=== PATIENT | male | born 1980 | race African-American/Black ===

== ENCOUNTER 2019-01-09 11:20 | Emergency (ER) | payer BC, OTHER ==
[2019-01-09] MEDS ORDERED: Sodium Chloride 0.9% 10 ML Syringe FLUSH PRN (11:43)
[2019-01-09] MEDS ORDERED: Sodium Chloride 0.9% 1,000 ML IV ONE (11:43)
[2019-01-09] MEDS ORDERED: Sodium Chloride 0.9% 2.5 ML Syringe FLUSH PRN (11:43)
--- NOTE | 2019-01-09 11:48 | EDM.PDOC ---
ED HPI GENERAL MEDICAL PROBLEM - General Chief Complaint: Abdominal Pain Stated Complaint: STOMACH PAIN Time Seen by Provider: 01/09/19 11:48 Source of Information: Reports: Patient History Limitations: Reports: No Limitations - History of Present Illness INITIAL COMMENTS - FREE TEXT/NARRATIVE: HISTORY AND PHYSICAL: History of present illness: Patient is a 38-year-old male presents to the ED with complaint of abdominal pain 1 week. Reports diffuse abdominal pain with nausea, vomiting, and nonbloody diarrhea. He states he last vomited yesterday and today he had a normal solid bowel movement. He denies fevers, chills, dysuria, hematuria, back pain, chest pain, shortness of breath. He does report having a cough. He denies significant past medical or surgical history. Denies tobacco or alcohol use. Review of systems: As per history of present illness and below otherwise all systems reviewed and negative. Past medical history: As per history of present illness and as reviewed below otherwise noncontributory. Surgical history: As per history of present illness and as reviewed below otherwise noncontributory. Social history: No reported history of drug or alcohol abuse. Family history: As per history of present illness and as reviewed below otherwise noncontributory. Physical exam: General: Patient sitting comfortably in no acute distress and nontoxic appearing HEENT: Atraumatic, normocephalic, pupils reactive, negative for conjunctival pallor or scleral icterus, mucous membranes moist, throat clear, neck supple, nontender, trachea midline. No meningeal signs. Lungs: Clear to auscultation, breath sounds equal bilaterally, chest nontender. Heart: S1S2, regular, negative for clicks, rubs, or overt murmur. Abdomen: Diffuse mild abdominal tenderness to palpation Soft, nondistended. Negative for masses or hepatosplenomegaly. Negative for costovertebral tenderness. No rigidity, rebound, guarding. Pelvis: Stable nontender. Genitourinary: Deferred. Rectal: Deferred. Extremities: Atraumatic, negative for cords or calf pain. Neurovascular unremarkable. Neuro: Awake, alert, oriented. Cranial nerves II through XII unremarkable. Cerebellum unremarkable. Motor and sensory unremarkable throughout. Exam nonfocal. Notes: Diagnostics: CBC, CMP, lipase, UA and chest x-ray Therapeutics: 1 L normal saline IV Prescriptions: Impression: Abdominal pain, gastroenteritis Plan: Drink plenty of fluids and bland food as tolerated. Alternate Tylenol and ibuprofen as needed for pain Follow-up with primary care provider Return to ED as needed as discussed Definitive disposition and diagnosis as appropriate pending reevaluation and review of above. Abdominal Pain Score (Numeric/FACES): 10 - Related Data Allergies Allergy/AdvReac Type Severity Reaction Status Date / Time Penicillins Allergy Anaphylactic Verified 01/09/19 11:34 Shock Home Meds: Home Meds . [No Known Home Meds] 01/09/19 [History] Past Medical History - Past Health History Medical/Surgical History: Denies Medical/Surgical History - Infectious Disease History Infectious Disease History: Reports: Chicken Pox Social & Family History - Family History Family Medical History: Noncontributory - Tobacco Use Smoking Status *Q: Never Smoker Second Hand Smoke Exposure: No - Caffeine Use Caffeine Use: Reports: Coffee - Recreational Drug Use Recreational Drug Use: No ED ROS GENERAL - Review of Systems Review Of Systems: ROS reveals no pertinent complaints other than HPI. ED EXAM, GI/ABD - Physical Exam Exam: See Below (See dictation) Course - Vital Signs Last Recorded V/S: Last Vital Signs Temp 97.8 F 01/09/19 11:35 Pulse 73 01/09/19 11:35 Resp 16 01/09/19 11:35 BP 143/100 H 01/09/19 11:35 Pulse Ox 100 01/09/19 11:35 - Orders/Labs/Meds Orders: Active Orders 24 hr Category Date Time Status Sodium Chloride 0.9% [Saline Flush] Med 01/09/19 11:43 Active 10 ml FLUSH ASDIRECTED PRN Sodium Chloride 0.9% [Saline Flush] Med 01/09/19 11:43 Active 2.5 ml FLUSH ASDIRECTED PRN Saline Lock Insert [OM.PC] Stat Oth 01/09/19 11:43 Ordered Medication Orders Sodium Chloride (Saline Flush) 10 ml FLUSH ASDIRECTED PRN PRN Reason: Keep Vein Open Last Admin: 01/09/19 11:55 Dose: 10 ml Sodium Chloride (Saline Flush) 2.5 ml FLUSH ASDIRECTED PRN PRN Reason: Keep Vein Open Last Admin: 01/09/19 11:55 Dose: 2.5 ml Labs: Laboratory Tests 01/09/19 01/09/19 01/09/19 Range/Units 11:38 11:53 11:53 WBC 7.65 (4.0-11.0) K/uL RBC 4.54 (4.50-5.90) M/uL Hgb 13.3 (13.0-17.0) g/dL Hct 41.3 (38.0-50.0) % MCV 91.0 (80.0-98.0) fL MCH 29.3 (27.0-32.0) pg MCHC 32.2 (31.0-37.0) g/dL RDW Std Deviation 40.6 (28.0-62.0) fl RDW Coeff of August 12 (11.0-15.0) % Plt Count 238 (150-400) K/uL MPV 9.60 (7.40-12.00) fL Neut % (Auto) 61.6 (48.0-80.0) % Lymph % (Auto) 29.0 (16.0-40.0) % [place] % (Auto) 7.5 (0.0-15.0) % Eos % (Auto) 1.2 (0.0-7.0) % Baso % (Auto) 0.7 (0.0-1.5) % Neut # (Auto) 4.7 (1.4-5.7) K/uL Lymph # (Auto) 2.2 (0.6-2.4) K/uL [place] # (Auto) 0.6 (0.0-0.8) K/uL Eos # (Auto) 0.1 (0.0-0.7) K/uL Baso # (Auto) 0.1 (0.0-0.1) K/uL Nucleated RBC % 0.0 /100WBC Nucleated RBCs # 0 K/uL Sodium 140 (136-148) mmol/L Potassium 3.6 (3.5-5.1) mmol/L Chloride 104 (98-107) mmol/L Carbon Dioxide 25.7 (21.0-32.0) mmol/L BUN 7 (7.0-18.0) mg/dL Creatinine 1.1 (0.8-1.3) mg/dL Est Cr Clr Drug Dosing 85.96 mL/min Estimated GFR (MDRD) > 60.0 ml/min Glucose 101 (74-106) mg/dL Calcium 9.6 (8.5-10.1) mg/dL Total Bilirubin 0.4 (0.2-1.0) mg/dL AST 20 (15-37) IU/L ALT 19 (14-63) IU/L Alkaline Phosphatase 89 (46-116) U/L Total Protein 7.3 (6.4-8.2) g/dL Albumin 3.6 (3.4-5.0) g/dL Globulin 3.7 (2.6-4.0) g/dL Albumin/Globulin Ratio 1.0 (0.9-1.6) Lipase 135 (73-393) U/L Urine Color YELLOW Urine Appearance CLEAR Urine pH 6.5 (5.0-8.0) Ur Specific [place] 1.010 (1.001-1.035) Urine Protein NEGATIVE (NEGATIVE) mg/dL Urine Glucose (UA) NEGATIVE (NEGATIVE) mg/dL Urine Ketones NEGATIVE (NEGATIVE) mg/dL Urine Occult Blood NEGATIVE (NEGATIVE) Urine Nitrite NEGATIVE (NEGATIVE) Urine Bilirubin NEGATIVE (NEGATIVE) Urine Urobilinogen 0.2 (<2.0) EU/dL Ur Leukocyte Esterase NEGATIVE (NEGATIVE) Meds: Medications Generic Name Dose Route Start Last Admin Trade Name Freq PRN Reason Stop Dose Admin Sodium Chloride 10 ml 01/09/19 11:43 01/09/19 11:55 Saline Flush FLUSH 10 ml ASDIRECTED PRN Administration Keep Vein Open Sodium Chloride 2.5 ml 01/09/19 11:43 01/09/19 11:55 Saline Flush FLUSH 2.5 ml ASDIRECTED PRN Administration Keep Vein Open Discontinued Medications Generic Name Dose Route Start Last Admin Trade Name Freq PRN Reason Stop Dose Admin Sodium Chloride 1,000 mls @ 999 mls/hr 01/09/19 11:43 01/09/19 11:55 Normal Saline IV 01/09/19 12:43 999 mls/hr STAT ONE Administration Departure - Departure Time of Disposition: 12:54 Disposition: Home, Self-Care 01 Condition: Good Clinical Impression: Abdominal pain, Gastroenteritis - Discharge Information Referrals: PCP,Unknown [Primary Care Provider] - Forms: ED Department Discharge Additional Instructions: The following information is given to patients seen in the emergency department who are being discharged to home. This information is to outline your options for follow-up care. We provide all patients seen in our emergency department with a follow-up referral. The need for follow-up, as well as the timing and circumstances, are variable depending upon the specifics of your emergency department visit. If you don't have a primary care physician on staff, we will provide you with a referral. We always advise you to contact your personal physician following an emergency department visit to inform them of the circumstance of the visit and for follow-up with them and/or the need for any referrals to a consulting specialist. The emergency department will also refer you to a specialist when appropriate. This referral assures that you have the opportunity for follow-up care with a specialist. All of these measure are taken in an effort to provide you with optimal care, which includes your follow-up. Under all circumstances we always encourage you to contact your private physician who remains a resource for coordinating your care. When calling for follow-up care, please make the office aware that this follow-up is from your recent emergency room visit. If for any reason you are refused follow-up, please contact the Emergency Department at and asked to speak to the emergency department charge nurse. [facility] [address] [place] [id number] [address] Drink plenty of fluids and bland food as tolerated. Alternate Tylenol and ibuprofen as needed for pain Follow-up with primary care provider Return to ED as needed as discussed - My Orders Last 24 Hours: My Active Orders 01/09/19 11:43 Sodium Chloride 0.9% [Saline Flush] 10 ml FLUSH ASDIRECTED PRN Sodium Chloride 0.9% [Saline Flush] 2.5 ml FLUSH ASDIRECTED PRN Saline Lock Insert [OM.PC] Stat - Assessment/Plan Last 24 Hours: My Active Orders 01/09/19 11:43 Sodium Chloride 0.9% [Saline Flush] 10 ml FLUSH ASDIRECTED PRN Sodium Chloride 0.9% [Saline Flush] 2.5 ml FLUSH ASDIRECTED PRN Saline Lock Insert [OM.PC] Stat
[2019-01-09 12:28] LABS: BLOOD UREA NITROGEN,BUN 7 mg/dL (7.0-18.0); CARBON DIOXIDE,CO2 25.7 mmol/L (21.0-32.0); CHLORIDE,CL 104 mmol/L (98-107); GLUCOSE RANDOM 101 mg/dL (74-106); LIPASE 135 U/L (73-393); POTASSIUM,K 3.6 mmol/L (3.5-5.1); SODIUM,NA 140 mmol/L (136-148)
--- NOTE | 2019-01-09 12:50 | CR ---
Chest: 2 views of the chest were obtained. Comparison: No prior chest x-ray. Heart size and mediastinum are normal. Minimal nodule is noted within the right upper lung measuring about 3 mm. Lungs otherwise are clear. Minimal scoliosis is noted. Impression: 1. 3 mm nodule within the right upper chest. If patient is a smoker, noncontrast chest CT recommended to further evaluate. If patient is not a smoker, this finding can be ignored. 2. Nothing acute is otherwise seen on frontal chest x-ray. Diagnostic code #9 MTDD
== END 2019-01-09 13:07 | disposition home or self-care (01) ==
LOC: MW.ED 11:20
DX: K52.9 Noninfective gastroenteritis and colitis, unspecified (principal); Z88.0 Allergy status to penicillin
CPT/HCPCS: 36415; 71046; 80053; 81003; 83690; 85025; 96360; 99284; J7040; 99283

== ENCOUNTER 2019-01-12 15:08 | Emergency (ER) | payer BC ==
--- NOTE | 2019-01-12 15:19 | EDM.PDOC ---
<Edith Moralez E - Last Filed: 01/12/19 17:39> ED HPI GENERAL MEDICAL PROBLEM - General Chief Complaint: Gastrointestinal Problem Stated Complaint: STOMACH PAIN Time Seen by Provider: 01/12/19 15:13 Source of Information: Reports: Patient History Limitations: Reports: No Limitations - History of Present Illness INITIAL COMMENTS - FREE TEXT/NARRATIVE: HISTORY AND PHYSICAL: History of present illness: Patient is a 38-year-old male who presents to the emergency room with complaints of diffuse mid abdominal pain 1 week. He was seen in the emergency room on 01/09/19 for this same complaint and was told it was likely "viral illness ". He states the pain has not improved and he now has nausea and vomiting associated with this. He states he had a lap band and later removed in 2016 in [place]. States that the pain he experienced during that time is similar to the pain he is having now. Which she describes as "gas pain". He denies any changes in his dietary intake.Patient denies any fever, chills, headache, change in vision, syncope or near syncope. Denies any chest pain, back pain, shortness of breath or cough. Denies any diarrhea, constipation or dysuria. Has not noted any blood in urine or stool. Patient has been eating and drinking appropriately. Review of systems: As per history of present illness and below otherwise all systems reviewed and negative. Past medical history: As per history of present illness and as reviewed below otherwise noncontributory. Surgical history: As per history of present illness and as reviewed below otherwise noncontributory. Social history: See social history for further information Family history: As per history of present illness and as reviewed below otherwise noncontributory. Physical exam: General:Well-developed and well-nourished 38-year-old -[place] male. Alert and oriented. Nontoxic appearing and in no acute distress. HEENT: Atraumatic, normocephalic, pupils equal and reactive bilaterally, negative for conjunctival pallor or scleral icterus, mucous membranes moist, trachea midline. No drooling or trismus noted. No meningeal signs. No hot potato voice noted. Lungs: Clear to auscultation, breath sounds equal bilaterally, chest nontender. Heart: S1S2, regular rate and rhythm without overt murmur Abdomen: Soft, nondistended, diffuse tenderness in all 4 quadrants. Negative for masses or hepatosplenomegaly. Negative for costovertebral tenderness. Skin: Intact, warm, dry. No lesions or rashes noted. Extremities: Atraumatic, moves all extremities per self without difficulty or deficits, negative for cords or calf pain. Neurovascular unremarkable. Neuro: Awake, alert, oriented. Cranial nerves II through XII unremarkable. Cerebellum unremarkable. Motor and sensory unremarkable throughout. Exam nonfocal. Notes: Supportive care measures were reviewed and discussed. Voices understanding and is agreeable to plan of care. Denies any further questions or concerns at this time. Diagnostics: CBC, CMP, UA, lipase, CT abdomen and pelvis Therapeutics: IV fluid Impression: Abdominal pain Definitive disposition and diagnosis as appropriate pending reevaluation and review of above. - Related Data Allergies Allergy/AdvReac Type Severity Reaction Status Date / Time Penicillins Allergy Anaphylactic Verified 01/12/19 15:12 Shock Home Meds: Home Meds Hyoscyamine Sulfate [Levsin] 0.125 mg PO TID PRN #20 tablet 01/12/19 [Rx] Past Medical History - Past Health History Medical/Surgical History: Denies Medical/Surgical History - Infectious Disease History Infectious Disease History: Reports: Chicken Pox Social & Family History - Family History Family Medical History: Noncontributory - Caffeine Use Caffeine Use: Reports: Coffee Course - Vital Signs Last Recorded V/S: Last Vital Signs Temp 97.2 F 01/12/19 17:21 Pulse 82 01/12/19 17:21 Resp 16 01/12/19 17:21 BP 136/91 H 01/12/19 17:21 Pulse Ox 97 01/12/19 17:21 - Orders/Labs/Meds Labs: Laboratory Tests 01/12/19 01/12/19 01/12/19 Range/Units 15:25 15:30 15:30 WBC 10.80 (4.0-11.0) K/uL RBC 4.79 (4.50-5.90) M/uL Hgb 14.1 (13.0-17.0) g/dL Hct 43.7 (38.0-50.0) % MCV 91.2 (80.0-98.0) fL MCH 29.4 (27.0-32.0) pg MCHC 32.3 (31.0-37.0) g/dL RDW Std Deviation 40.9 (28.0-62.0) fl RDW Coeff of August 12 (11.0-15.0) % Plt Count 265 (150-400) K/uL MPV 9.60 (7.40-12.00) fL Neut % (Auto) 74.7 (48.0-80.0) % Lymph % (Auto) 17.9 (16.0-40.0) % [place] % (Auto) 6.6 (0.0-15.0) % Eos % (Auto) 0.4 (0.0-7.0) % Baso % (Auto) 0.4 (0.0-1.5) % Neut # (Auto) 8.1 H (1.4-5.7) K/uL Lymph # (Auto) 1.9 (0.6-2.4) K/uL [place] # (Auto) 0.7 (0.0-0.8) K/uL Eos # (Auto) 0.0 (0.0-0.7) K/uL Baso # (Auto) 0.0 (0.0-0.1) K/uL Nucleated RBC % 0.0 /100WBC Nucleated RBCs # 0 K/uL Sodium 138 (136-148) mmol/L Potassium 3.9 (3.5-5.1) mmol/L Chloride 102 (98-107) mmol/L Carbon Dioxide 27.9 (21.0-32.0) mmol/L BUN 6 L (7.0-18.0) mg/dL Creatinine 1.1 (0.8-1.3) mg/dL Est Cr Clr Drug Dosing 85.96 mL/min Estimated GFR (MDRD) > 60.0 ml/min Glucose 113 H (74-106) mg/dL Calcium 9.8 (8.5-10.1) mg/dL Total Bilirubin 0.5 (0.2-1.0) mg/dL AST 20 (15-37) IU/L ALT 23 (14-63) IU/L Alkaline Phosphatase 99 (46-116) U/L Total Protein 7.8 (6.4-8.2) g/dL Albumin 3.8 (3.4-5.0) g/dL Globulin 4.0 (2.6-4.0) g/dL Albumin/Globulin Ratio 0.9 (0.9-1.6) Lipase 113 (73-393) U/L Urine Color STRAW Urine Appearance CLEAR Urine pH 7.5 (5.0-8.0) Ur Specific [place] 1.010 (1.001-1.035) Urine Protein NEGATIVE (NEGATIVE) mg/dL Urine Glucose (UA) NEGATIVE (NEGATIVE) mg/dL Urine Ketones NEGATIVE (NEGATIVE) mg/dL Urine Occult Blood NEGATIVE (NEGATIVE) Urine Nitrite NEGATIVE (NEGATIVE) Urine Bilirubin NEGATIVE (NEGATIVE) Urine Urobilinogen 0.2 (<2.0) EU/dL Ur Leukocyte Esterase NEGATIVE (NEGATIVE) Meds: Medications Discontinued Medications Generic Name Dose Route Start Last Admin Trade Name Freq PRN Reason Stop Dose Admin Hyoscyamine 0.125 mg 01/12/19 17:17 01/12/19 17:23 Hyomax-Sl SL 01/12/19 17:18 0.125 mg ONETIME ONE Administration Sodium Chloride 1,000 mls @ 999 mls/hr 01/12/19 15:20 01/12/19 15:37 Normal Saline IV 01/12/19 16:20 999 mls/hr STAT ONE Administration Iopamidol 100 ml 01/12/19 17:47 01/12/19 17:48 Isovue-370 (76%) IVPUSH 01/12/19 17:48 100 ml ONETIME STA Administration Ondansetron HCl 4 mg 01/12/19 15:20 01/12/19 15:37 Zofran IVPUSH 01/12/19 15:21 4 mg ONETIME ONE Administration Departure - Departure Disposition: Home, Self-Care 01 Clinical Impression: Abdominal pain Qualifiers: Abdominal location: upper abdomen, unspecified Qualified Code(s): R10.10 - Upper abdominal pain, unspecified - Discharge Information Prescriptions: Hyoscyamine Sulfate [Levsin] 0.125 mg PO TID PRN #20 tablet PRN Reason: Pain Instructions: Abdominal Pain, Adult, [id number] Referrals: PCP,Unknown [Primary Care Provider] - Forms: ED Department Discharge Additional Instructions: The following information is given to patients seen in the emergency department who are being discharged to home. This information is to outline your options for follow-up care. We provide all patients seen in our emergency department with a follow-up referral. The need for follow-up, as well as the timing and circumstances, are variable depending upon the specifics of your emergency department visit. If you don't have a primary care physician on staff, we will provide you with a referral. We always advise you to contact your personal physician following an emergency department visit to inform them of the circumstance of the visit and for follow-up with them and/or the need for any referrals to a consulting specialist. The emergency department will also refer you to a specialist when appropriate. This referral assures that you have the opportunity for follow-up care with a specialist. All of these measure are taken in an effort to provide you with optimal care, which includes your follow-up. Under all circumstances we always encourage you to contact your private physician who remains a resource for coordinating your care. When calling for follow-up care, please make the office aware that this follow-up is from your recent emergency room visit. If for any reason you are refused follow-up, please contact the [facility] Emergency Department at and asked to speak to the emergency department charge nurse. Take meds as directed, follow up with your primary care physician, return to ER if symptoms worsen or change. [facility] - General Surgery Professional Building [address] [place] [address], [address] [place] [address] <Tiffanie Mercado - Last Filed: 01/13/19 05:05> ED HPI GENERAL MEDICAL PROBLEM - History of Present Illness INITIAL COMMENTS - FREE TEXT/NARRATIVE: Patient's workup was negative, I'll discharge him with a prescription for Levsin and have him follow-up with general surgery for further workup. RLQ Pain Score (Numeric/FACES): 10 ED ROS GENERAL - Review of Systems Review Of Systems: See Below ED EXAM, GI/ABD - Physical Exam Exam: See Below Departure - Departure Time of Disposition: 17:04 Condition: Good - Discharge Information *PRESCRIPTION DRUG MONITORING PROGRAM REVIEWED*: No *COPY OF PRESCRIPTION DRUG MONITORING REPORT IN PATIENT ELIUD: No
[2019-01-12] MEDS ORDERED: Ondansetron 4 MG/2 ML SDV IVPUSH ONE (15:20)
[2019-01-12] MEDS ORDERED: Sodium Chloride 0.9% 1,000 ML IV ONE (15:20)
[2019-01-12 15:57] LABS: BLOOD UREA NITROGEN,BUN 6 mg/dL (7.0-18.0); CARBON DIOXIDE,CO2 27.9 mmol/L (21.0-32.0); CHLORIDE,CL 102 mmol/L (98-107); GLUCOSE RANDOM 113 mg/dL (74-106); LIPASE 113 U/L (73-393); POTASSIUM,K 3.9 mmol/L (3.5-5.1); SODIUM,NA 138 mmol/L (136-148)
--- NOTE | 2019-01-12 16:46 | CT ---
Indication: Abdominal pain. Technique: Multiple contiguous axial images were obtained from the lung bases through the symphysis pubis after the intravenous administration of 100 milliliters Isovue 370. Please note that all CT scans at this facility use dose modulation, iterative reconstruction, and/or weight-based dosing when appropriate to reduce radiation dose to as low as reasonably achievable. Comparison: None Findings: The lung bases are clear. No infiltrate, pleural effusion, or pneumothorax is identified. The heart is normal in size. No pericardial effusion is identified. Either the wall is calcified, or there are gallstones with lucent centers within the gallbladder, particularly near the neck of the gallbladder. No intrahepatic biliary ductal dilatation is identified. No hydronephrosis is seen. The liver, spleen, adrenals, and kidneys are normal. In the pelvis, the urinary bladder is normal. The prostate gland is normal. No free air or free fluid is identified within the abdomen or pelvis. The small large bowel are normal in caliber. The aorta is normal in caliber. Questionable thickening of the wall of the distal esophagus is identified. Impression: Questionable thickening of the wall of the distal esophagus. Calcification either within the wall of the neck of the gallbladder or gallstones with lucent centers. If the patient is having right upper quadrant pain, consideration should be given to an ultrasound of the right upper quadrant. Please note that all CT scans at this facility use dose modulation, iterative reconstruction, and/or weight-based dosing when appropriate to reduce radiation dose to as low as reasonably achievable. Dictated by Leslie Estrada MD @ Jan 12 2019 4:40PM Signed by Dr. Leslie Estrada @ Jan 12 2019 4:43PM
[2019-01-12] MEDS ORDERED: Hyoscyamine 0.125 MG Tab.SL SL ONE (17:17)
[2019-01-12] MEDS ORDERED: Iopamidol 755 Mg/ML 100 ML Bottle IVPUSH STA (17:47)
== END 2019-01-12 17:24 | disposition home or self-care (01) ==
LOC: MW.ED 15:08
DX: R10.10 Upper abdominal pain, unspecified (principal); Z88.0 Allergy status to penicillin
CPT/HCPCS: 36415; 74177; 80053; 81003; 83690; 85025; 96361; 96374; 99284; A9270; J2405; J7040; Q9967

== ENCOUNTER 2019-02-05 09:08 | Observation (INO) | payer BC ==
[2019-02-05] MEDS ORDERED: Sodium Chloride 0.9% 1,000 ML IV ONE (09:25)
[2019-02-05] MEDS ORDERED: Sodium Chloride 0.9% 2.5 ML Syringe FLUSH PRN (09:25)
[2019-02-05] MEDS ORDERED: Sodium Chloride 0.9% 10 ML Syringe FLUSH PRN (09:25)
--- NOTE | 2019-02-05 09:25 | EDM.PDOC ---
ED HPI GENERAL MEDICAL PROBLEM - General Chief Complaint: Abdominal Pain Stated Complaint: ABD PAIN Time Seen by Provider: 02/05/19 09:25 Source of Information: Reports: Patient History Limitations: Reports: No Limitations - History of Present Illness INITIAL COMMENTS - FREE TEXT/NARRATIVE: History of present illness: []Patient has abdominal pain that started yesterday but worsened this morning her eating a muffin. He denies any fevers or chills. He has had this pain in the past and is currently being worked up in [place] where he lives. Patient was seen in this ED one month ago with the same pain but had a negative workup at that time. Review of systems: As per history of present illness and below otherwise all systems reviewed and negative. Past medical history: As per history of present illness and as reviewed below otherwise noncontributory. Surgical history: As per history of present illness and as reviewed below otherwise noncontributory. Social history: No reported history of drug or alcohol abuse. Family history: As per history of present illness and as reviewed below otherwise noncontributory. Physical exam: General: Well developed, well nourished in NAD HEENT: Atraumatic, normocephalic, pupils reactive, negative for conjunctival pallor or scleral icterus, mucous membranes moist, throat clear, neck supple, nontender, trachea midline. Lungs: Clear to auscultation, breath sounds equal bilaterally, chest nontender. Heart: S1S2, regular, negative for clicks, rubs, or JVD. Abdomen: NABS, Soft, nondistended, nontender. Negative for masses or hepatosplenomegaly. Negative for costovertebral tenderness. Pelvis: Stable nontender. Genitourinary: Deferred. Rectal: Deferred. Extremities: Atraumatic, negative for cords or calf pain. Neurovascular unremarkable. Neuro: Awake, alert, oriented. Cranial nerves II through XII unremarkable. Cerebellum unremarkable. Motor and sensory unremarkable throughout. Exam nonfocal. Skin:warm and dry Diagnostics: CBC, chemistry, lipase, abdominal ultrasound-[facility] radiologist called and stated he is concerned about acute cholecystitis is of them positive Freitas sign and and that there are so many stones he is unable to tell if there is wall thickening or not. Therapeutics: IV hydration with Zofran ED Course: Stable home and consulted Dr. Good and he will admit for further work up Impression: Acute cholecystitis Prescriptions: None Plan: Admit to floor Definitive disposition and diagnosis as appropriate pending reevaluation and review of above. Abdominal Pain Score (Numeric/FACES): 10 - Related Data Allergies Allergy/AdvReac Type Severity Reaction Status Date / Time Penicillins Allergy Anaphylactic Verified 02/05/19 13:00 Shock Home Meds: Home Meds Hyoscyamine Sulfate [Levsin] 0.125 mg PO TID PRN #20 tablet 01/12/19 [Rx] Past Medical History - Past Health History Medical/Surgical History: Denies Medical/Surgical History - Infectious Disease History Infectious Disease History: Reports: Chicken Pox Social & Family History - Family History Family Medical History: Noncontributory - Caffeine Use Caffeine Use: Reports: Coffee ED ROS GENERAL - Review of Systems Review Of Systems: See Below ED EXAM, GI/ABD - Physical Exam Exam: See Below Course - Vital Signs Last Recorded V/S: Last Vital Signs Temp 98.3 F 02/05/19 09:23 Pulse 67 02/05/19 09:23 Resp 16 02/05/19 09:23 BP 147/91 H 02/05/19 09:23 Pulse Ox 100 02/05/19 09:23 - Orders/Labs/Meds Orders: Active Orders 24 hr Category Date Time Status Patient Status [ADT] Stat ADT 02/05/19 11:57 Active Sodium Chloride 0.9% [Saline Flush] Med 02/05/19 09:25 Active 10 ml FLUSH ASDIRECTED PRN Sodium Chloride 0.9% [Saline Flush] Med 02/05/19 09:25 Active 2.5 ml FLUSH ASDIRECTED PRN Saline Lock Insert [OM.PC] Stat Oth 02/05/19 09:25 Ordered Medication Orders Lactated Ringer's (Ringers, Lactated) 1,000 mls @ 125 mls/hr IV ASDIRECTED FREDIS Last Admin: 02/05/19 13:11 Dose: 125 mls/hr Pantoprazole Sodium 40 mg/ (Sodium Chloride) 10 mls @ 300 mls/hr IV DAILY FREDIS Levofloxacin/Dextrose 750 mg/ (Premix) 150 mls @ 100 mls/hr IV Q24H FREDIS Morphine Sulfate (Morphine) 3 mg IVPUSH Q4H PRN PRN Reason: Pain Sodium Chloride (Saline Flush) 10 ml FLUSH ASDIRECTED PRN PRN Reason: Keep Vein Open Sodium Chloride (Saline Flush) 2.5 ml FLUSH ASDIRECTED PRN PRN Reason: Keep Vein Open Labs: Laboratory Tests 02/05/19 02/05/19 02/05/19 Range/Units 09:44 09:44 09:50 WBC 16.92 H (4.0-11.0) K/uL RBC 4.69 (4.50-5.90) M/uL Hgb 13.7 (13.0-17.0) g/dL Hct 42.9 (38.0-50.0) % MCV 91.5 (80.0-98.0) fL MCH 29.2 (27.0-32.0) pg MCHC 31.9 (31.0-37.0) g/dL RDW Std Deviation 41.1 (28.0-62.0) fl RDW Coeff of August 12 (11.0-15.0) % Plt Count 291 (150-400) K/uL MPV 9.60 (7.40-12.00) fL Neut % (Auto) 88.2 H (48.0-80.0) % Lymph % (Auto) 6.1 L (16.0-40.0) % [place] % (Auto) 5.6 (0.0-15.0) % Eos % (Auto) 0.0 (0.0-7.0) % Baso % (Auto) 0.1 (0.0-1.5) % Neut # (Auto) 14.9 H (1.4-5.7) K/uL Lymph # (Auto) 1.0 (0.6-2.4) K/uL [place] # (Auto) 1.0 H (0.0-0.8) K/uL Eos # (Auto) 0.0 (0.0-0.7) K/uL Baso # (Auto) 0.0 (0.0-0.1) K/uL Nucleated RBC % 0.0 /100WBC Nucleated RBCs # 0 K/uL Sodium 138 (136-148) mmol/L Potassium 3.7 (3.5-5.1) mmol/L Chloride 101 (98-107) mmol/L Carbon Dioxide 26.8 (21.0-32.0) mmol/L BUN 6 L (7.0-18.0) mg/dL Creatinine 1.1 (0.8-1.3) mg/dL Est Cr Clr Drug Dosing 91.95 mL/min Estimated GFR (MDRD) > 60.0 ml/min Glucose 123 H (74-106) mg/dL Calcium 9.6 (8.5-10.1) mg/dL Total Bilirubin 0.6 (0.2-1.0) mg/dL AST 22 (15-37) IU/L ALT 20 (14-63) IU/L Alkaline Phosphatase 98 (46-116) U/L Total Protein 9.1 H (6.4-8.2) g/dL Albumin 4.0 (3.4-5.0) g/dL Globulin 5.1 H (2.6-4.0) g/dL Albumin/Globulin Ratio 0.8 L (0.9-1.6) Lipase 89 (73-393) U/L Urine Color YELLOW Urine Appearance CLEAR Urine pH 7.0 (5.0-8.0) Ur Specific [place] 1.020 (1.001-1.035) Urine Protein TRACE H (NEGATIVE) mg/dL Urine Glucose (UA) NEGATIVE (NEGATIVE) mg/dL Urine Ketones NEGATIVE (NEGATIVE) mg/dL Urine Occult Blood TRACE-INTACT H (NEGATIVE) Urine Nitrite NEGATIVE (NEGATIVE) Urine Bilirubin NEGATIVE (NEGATIVE) Urine Urobilinogen 1.0 (<2.0) EU/dL Ur Leukocyte Esterase NEGATIVE (NEGATIVE) Urine RBC 0-3 (0-2/HPF) Urine WBC 0-1 (0-5/HPF) Ur Epithelial Cells RARE (NONE-FEW) Urine Bacteria RARE (NEGATIVE) Meds: Medications Generic Name Dose Route Start Last Admin Trade Name Freq PRN Reason Stop Dose Admin Lactated Ringer's 1,000 mls @ 125 mls/hr 02/05/19 12:30 02/05/19 13:11 Ringers, Lactated IV 125 mls/hr ASDIRECTED FREDIS Administration Pantoprazole Sodium 40 mg/ 10 mls @ 300 mls/hr 02/06/19 09:00 Sodium Chloride IV DAILY FREDIS Levofloxacin/Dextrose 750 mg/ 150 mls @ 100 mls/hr 02/06/19 12:30 Premix IV Q24H FREDIS Morphine Sulfate 3 mg 02/05/19 12:22 Morphine IVPUSH Q4H PRN Pain Sodium Chloride 10 ml 02/05/19 09:25 Saline Flush FLUSH ASDIRECTED PRN Keep Vein Open Sodium Chloride 2.5 ml 02/05/19 09:25 Saline Flush FLUSH ASDIRECTED PRN Keep Vein Open Discontinued Medications Generic Name Dose Route Start Last Admin Trade Name Freq PRN Reason Stop Dose Admin Sodium Chloride 1,000 mls @ 999 mls/hr 02/05/19 09:25 02/05/19 09:48 Normal Saline IV 02/05/19 10:25 999 mls/hr .Bolus ONE Administration Levofloxacin/Dextrose 500 mg/ 100 mls @ 100 mls/hr 02/05/19 11:10 02/05/19 11 :37 Premix IV 02/05/19 12:09 100 mls/hr ONETIME ONE Administration Levofloxacin/Dextrose 750 mg/ 150 mls @ 100 mls/hr 02/05/19 12:30 Premix IV Q24H FREDIS Iopamidol 100 ml 02/05/19 12:29 02/05/19 12:38 Isovue Multipack-370 (76%) IVPUSH 02/05/19 12:30 100 ml ONETIME STA Administration Ketorolac Tromethamine 30 mg 02/05/19 09:34 02/05/19 09:46 Toradol IVPUSH 02/05/19 09:35 30 mg ONETIME ONE Administration Morphine Sulfate 4 mg 02/05/19 11:40 02/05/19 11:45 Morphine IVPUSH 02/05/19 11:41 4 mg ONETIME ONE Administration Ondansetron HCl 4 mg 02/05/19 09:34 02/05/19 09:46 Zofran IVPUSH 02/05/19 09:35 4 mg ONETIME ONE Administration Departure - Departure Time of Disposition: 13:33 Disposition: Home, Self-Care 01 Condition: Good Clinical Impression: Acute abdominal pain - Discharge Information *PRESCRIPTION DRUG MONITORING PROGRAM REVIEWED*: No *COPY OF PRESCRIPTION DRUG MONITORING REPORT IN PATIENT EILUD: No - My Orders Last 24 Hours: My Active Orders 02/05/19 09:25 Sodium Chloride 0.9% [Saline Flush] 10 ml FLUSH ASDIRECTED PRN Sodium Chloride 0.9% [Saline Flush] 2.5 ml FLUSH ASDIRECTED PRN Saline Lock Insert [OM.PC] Stat 02/05/19 11:57 Patient Status [ADT] Stat - Assessment/Plan Last 24 Hours: My Active Orders 02/05/19 09:25 Sodium Chloride 0.9% [Saline Flush] 10 ml FLUSH ASDIRECTED PRN Sodium Chloride 0.9% [Saline Flush] 2.5 ml FLUSH ASDIRECTED PRN Saline Lock Insert [OM.PC] Stat 02/05/19 11:57 Patient Status [ADT] Stat
[2019-02-05] MEDS ORDERED: Ketorolac 30 MG/ML SDV IVPUSH ONE (09:34)
[2019-02-05] MEDS ORDERED: Ondansetron 4 MG/2 ML SDV IVPUSH ONE (09:34)
[2019-02-05 10:36] LABS: BLOOD UREA NITROGEN,BUN 6 mg/dL (7.0-18.0); CARBON DIOXIDE,CO2 26.8 mmol/L (21.0-32.0); CHLORIDE,CL 101 mmol/L (98-107); GLUCOSE RANDOM 123 mg/dL (74-106); LIPASE 89 U/L (73-393); POTASSIUM,K 3.7 mmol/L (3.5-5.1); SODIUM,NA 138 mmol/L (136-148)
[2019-02-05] MEDS ORDERED: Levofloxacin/Dextrose 5%-Water 500 MG in Premix Bag 1 BAG IV ONE (11:10)
--- NOTE | 2019-02-05 11:10 | US ---
INDICATION: Right-sided pain. COMPARISON: CT abdomen/pelvis 01/12/2019. TECHNIQUE: Real time anne scale imaging and color Doppler analysis was performed of the right upper quadrant. FINDINGS: Liver: The liver is normal in size and echogenicity. No focal liver lesions. Gallbladder: Multiple echogenic shadowing stones within the gallbladder. The gallbladder wall measures 3 mm in thickness where seen, however overall poorly visualized due to extensive shadowing. No definite pericholecystic fluid. Positive sonographic Freitas`s sign. Bile ducts: No biliary dilation. The common bile duct measures 4 mm in diameter. Pancreas: Not well seen due to bowel gas. Right kidney: The right kidney measures 10 cm in length. No hydronephrosis, calculus, or mass. IMPRESSION: 1. Possible acute cholecystitis. The gallbladder is full of shadowing stones and there is a positive sonographic Freitas sign, however no definite wall thickening or pericholecystic fluid. Findings discussed with Tiffanie Mercado at 11:01am on 02/05/2019. 2. Exam is otherwise unremarkable. Dictated by Luda Luis MD @ Feb 05 2019 10:42AM (Electronically Signed)
[2019-02-05] MEDS ORDERED: Morphine 4 MG/ML Syringe IVPUSH ONE (11:40)
[2019-02-05] MEDS ORDERED: Iopamidol 755 MG/ML 500 ML Multipack Bottle IVPUSH STA (12:29)
[2019-02-05] MEDS ORDERED: Levofloxacin/Dextrose 5%-Water 750 MG in Premix Bag 1 BAG IV SCH (12:30)
--- NOTE | 2019-02-05 12:50 | PCM.SN ---
- Free Text/Narrative Note: pt seen, chart reviewed; symptomatic gallstones; admitted for observation, and abx administration, npo, pain management; poss gb surgery in a week; [id number]
[2019-02-05] MEDS: Lactated Ringers 1,000 ML IV SCH ×2 (13:11→20:51)
--- NOTE | 2019-02-05 13:11 | CT ---
CT abdomen and pelvis Technique: Multiple axial sections were obtained from above the dome of the diaphragm inferiorly through the pubic symphysis. Intravenous contrast was utilized. No oral contrast has been given. Findings: Visualized lung bases show nothing acute. Small low density finding is noted within the posterior right lobe of the liver. This does not appear as a cystic area and measures 1.1 cm. No additional abnormality is seen within the liver. Spleen appears within normal limits. Small hiatal hernia is noted. Adrenal glands show no nodule. Pancreas is within normal limits. Gallbladder contains calcified gallstones. No gallbladder wall edema is identified on the study. Aorta shows no aneurysm. No retroperitoneal adenopathy is seen. Kidneys show symmetric contrast enhancement without hydronephrosis or mass. No retroperitoneal adenopathy or mesenteric abnormalities are seen. Appendix not visualized with certainty. No pelvic mass or adenopathy is seen. No free fluid or inflammatory change is seen. Bone window settings were reviewed which appear within normal limits for the patient's age. Impression: 1. Small solid mass within the right lobe of the liver. Recommend ultrasound exam to see if this can be seen by that modality and to allow for follow-up. 2. Multiple calcified gallstones. 3. No additional abnormality is appreciated on CT study of the abdomen and pelvis. Diagnostic code #9 MTDD
[2019-02-05] MEDS ORDERED: Pneumococcal Polyvalent-23 Vaccine 0.5 ML SDV IM ONE (13:31)
[2019-02-05] MEDS: Morphine 2 MG/ML Syringe IVPUSH PRN ×2 (16:07→20:26)
--- NOTE | 2019-02-06 00:49 | PCM.SN ---
- Free Text/Narrative Note: ct a/p readings noted; no acute process. gb w stones, continue iv abx/npo/pain management
[2019-02-06] MEDS: Morphine 2 MG/ML Syringe IVPUSH PRN ×2 (00:57→05:05)
[2019-02-06] MEDS: Lactated Ringers 1,000 ML IV SCH (04:53)
[2019-02-06 06:55] LABS: BLOOD UREA NITROGEN,BUN 8 mg/dL (7.0-18.0); CARBON DIOXIDE,CO2 28.4 mmol/L (21.0-32.0); CHLORIDE,CL 104 mmol/L (98-107); GLUCOSE RANDOM 98 mg/dL (74-106); LIPASE 82 U/L (73-393); POTASSIUM,K 3.8 mmol/L (3.5-5.1); SODIUM,NA 141 mmol/L (136-148)
--- NOTE | 2019-02-06 08:22 | CONS ---
H&P AND CONSULTATION REPORT DATE OF CONSULTATION: 02/05/2019 DATE OF : 1980 PRIMARY CARE PHYSICIAN: Franky I. PCP REASON FOR CONSULTATION: This is a consult from Dr. Mercado in the emergency room. Concerning question is acute cholecystitis. HISTORY OF PRESENT ILLNESS: The patient is a 38-year-old gentleman, obese, seen in the emergency room for pain, 10/10, for the last 2 weeks. The patient said the pain is most common at about 1900 evening up to 2000, but has been going on for months or even years. This time has been happening for 2 weeks. The patient was seen here a month ago, and workup shows gallstones. The patient wanted to tough it out, so he can have surgery in [place], where his hometown is. However, the pain getting worse today and seen in the emergency room. The patient denied jaundice, dark urine, and white stool. Denied weight loss without intention and denied bright red blood per rectum, denied black tarry stool. The patient also remarked that he had presumably an EGD done 6 months ago and was then prescribed some medication, but he does not know what medication, presumably was a PPI. PAST MEDICAL HISTORY: Denied diabetes, HI, CVA, hypertension. PAST SURGICAL HISTORY: Had lap banding done 6 years ago and was removed 2 years ago and endoscopy done. ALLERGIES: Please refer to nursing for details. MEDICATIONS: Please refer to nursing for details. SOCIAL HISTORY: The patient denied tobacco or alcohol use. FAMILY HISTORY: Noncontributory. PHYSICAL EXAMINATION: GENERAL: An overly anxious young man with tearful spell in the emergency room because of pain. HEENT: Normocephalic and atraumatic. Sclerae are anicteric. LUNGS: Clear to auscultation. HEART: Regular rate and rhythm. ABDOMEN: Painful from the epigastrium down to inguinal area. Asked the patient several times, the patient remarked as 10/10 and with tears in his eyes and running down on his cheeks. LABORATORY DATA: Upon consultation, white count 16.9, H and H are 14 and 43, platelets are 291,000. Sodium 138, potassium 3.7, BUN is 6, creatinine is 1.1, glucose 123. Total bilirubin is 0.6, AST and ALT of 22 and 20, alkaline phosphatase is 98. Lipase is 89. UA is negative for infection. Ultrasound report: Possible acute cholecystitis. Gallbladder is full of shadowing stones. Positive Freitas's sign. No wall thickening and no intraductal dilatation. Common bile duct is 4 mm. No pericholecystic fluid. IMPRESSION/PLAN: Abdominal pain, almost exaggerated in presentation. We will obtain CAT scan of abdomen and pelvis. Of note, the patient denied black tarry stool or bright red blood per rectum and had well-formed stool the morning when coming to the emergency room and his regular color. The patient denied nausea. After CAT scan, the patient will be able to admit for observation, pain management, antibiotic. Cool down the gallbladder and maybe consider gallbladder surgery a week from now or preferably, as the patient put it, to have surgery in his hometown in [place]. CARIDAD / PRECIOUS /[id number]
[2019-02-06] MEDS ORDERED: Pantoprazole 40 MG in Sodium Chloride 0.9% 10 ML IV SCH (09:00)
[2019-02-06] MEDS ORDERED: Docusate Sodium 100 MG Cap PO PRN (09:27)
--- NOTE | 2019-02-06 09:30 | PCM.SURGPN ---
- General Info Date of Service: 02/06/19 Functional Status: Reports: Pain Controlled - Patient Data Vitals - Most Recent: Last Vital Signs Temp 97.4 F 02/06/19 07:56 Pulse 74 02/06/19 07:56 Resp 16 02/06/19 07:56 BP 120/73 02/06/19 07:56 Pulse Ox 97 02/06/19 07:56 Weight - Most Recent: 233 lb 1 oz I&O - Last 24 Hours: Intake & Output 02/05/19 02/06/19 02/06/19 22:59 06:59 14:59 Intake Total 1316 980 Output Total 120 770 Balance 1196 210 Lab Results Last 24 Hrs: Laboratory Results - last 24 hr 02/05/19 02/05/19 02/05/19 Range/Units 09:44 09:44 09:50 WBC 16.92 H (4.0-11.0) K/uL RBC 4.69 (4.50-5.90) M/uL Hgb 13.7 (13.0-17.0) g/dL Hct 42.9 (38.0-50.0) % MCV 91.5 (80.0-98.0) fL MCH 29.2 (27.0-32.0) pg MCHC 31.9 (31.0-37.0) g/dL RDW Std Deviation 41.1 (28.0-62.0) fl RDW Coeff of August 12 (11.0-15.0) % Plt Count 291 (150-400) K/uL MPV 9.60 (7.40-12.00) fL Neut % (Auto) 88.2 H (48.0-80.0) % Lymph % (Auto) 6.1 L (16.0-40.0) % [place] % (Auto) 5.6 (0.0-15.0) % Eos % (Auto) 0.0 (0.0-7.0) % Baso % (Auto) 0.1 (0.0-1.5) % Neut # (Auto) 14.9 H (1.4-5.7) K/uL Lymph # (Auto) 1.0 (0.6-2.4) K/uL [place] # (Auto) 1.0 H (0.0-0.8) K/uL Eos # (Auto) 0.0 (0.0-0.7) K/uL Baso # (Auto) 0.0 (0.0-0.1) K/uL Nucleated RBC % 0.0 /100WBC Nucleated RBCs # 0 K/uL Sodium 138 (136-148) mmol/L Potassium 3.7 (3.5-5.1) mmol/L Chloride 101 (98-107) mmol/L Carbon Dioxide 26.8 (21.0-32.0) mmol/L BUN 6 L (7.0-18.0) mg/dL Creatinine 1.1 (0.8-1.3) mg/dL Est Cr Clr Drug Dosing 91.95 mL/min Estimated GFR (MDRD) > 60.0 ml/min Glucose 123 H (74-106) mg/dL Calcium 9.6 (8.5-10.1) mg/dL Total Bilirubin 0.6 (0.2-1.0) mg/dL AST 22 (15-37) IU/L ALT 20 (14-63) IU/L Alkaline Phosphatase 98 (46-116) U/L Total Protein 9.1 H (6.4-8.2) g/dL Albumin 4.0 (3.4-5.0) g/dL Globulin 5.1 H (2.6-4.0) g/dL Albumin/Globulin Ratio 0.8 L (0.9-1.6) Amylase (25-115) U/L Lipase 89 (73-393) U/L Urine Color YELLOW Urine Appearance CLEAR Urine pH 7.0 (5.0-8.0) Ur Specific [place] 1.020 (1.001-1.035) Urine Protein TRACE H (NEGATIVE) mg/dL Urine Glucose (UA) NEGATIVE (NEGATIVE) mg/dL Urine Ketones NEGATIVE (NEGATIVE) mg/dL Urine Occult Blood TRACE-INTACT H (NEGATIVE) Urine Nitrite NEGATIVE (NEGATIVE) Urine Bilirubin NEGATIVE (NEGATIVE) Urine Urobilinogen 1.0 (<2.0) EU/dL Ur Leukocyte Esterase NEGATIVE (NEGATIVE) Urine RBC 0-3 (0-2/HPF) Urine WBC 0-1 (0-5/HPF) Ur Epithelial Cells RARE (NONE-FEW) Urine Bacteria RARE (NEGATIVE) 02/06/19 02/06/19 Range/Units 06:23 06:23 WBC 10.20 (4.0-11.0) K/uL RBC 4.16 L (4.50-5.90) M/uL Hgb 12.1 L (13.0-17.0) g/dL Hct 38.5 (38.0-50.0) % MCV 92.5 (80.0-98.0) fL MCH 29.1 (27.0-32.0) pg MCHC 31.4 (31.0-37.0) g/dL RDW Std Deviation 41.7 (28.0-62.0) fl RDW Coeff of August 12 (11.0-15.0) % Plt Count 232 (150-400) K/uL MPV 9.60 (7.40-12.00) fL Neut % (Auto) 72.3 (48.0-80.0) % Lymph % (Auto) 18.2 (16.0-40.0) % [place] % (Auto) 9.1 (0.0-15.0) % Eos % (Auto) 0.2 (0.0-7.0) % Baso % (Auto) 0.2 (0.0-1.5) % Neut # (Auto) 7.4 H (1.4-5.7) K/uL Lymph # (Auto) 1.9 (0.6-2.4) K/uL [place] # (Auto) 0.9 H (0.0-0.8) K/uL Eos # (Auto) 0.0 (0.0-0.7) K/uL Baso # (Auto) 0.0 (0.0-0.1) K/uL Nucleated RBC % 0.0 /100WBC Nucleated RBCs # 0 K/uL Sodium 141 (136-148) mmol/L Potassium 3.8 (3.5-5.1) mmol/L Chloride 104 (98-107) mmol/L Carbon Dioxide 28.4 (21.0-32.0) mmol/L BUN 8 (7.0-18.0) mg/dL Creatinine 1.1 (0.8-1.3) mg/dL Est Cr Clr Drug Dosing 85.96 mL/min Estimated GFR (MDRD) > 60.0 ml/min Glucose 98 (74-106) mg/dL Calcium 9.0 (8.5-10.1) mg/dL Total Bilirubin 0.7 (0.2-1.0) mg/dL AST 13 L (15-37) IU/L ALT 15 (14-63) IU/L Alkaline Phosphatase 73 (46-116) U/L Total Protein 6.4 (6.4-8.2) g/dL Albumin 2.9 L (3.4-5.0) g/dL Globulin 3.5 (2.6-4.0) g/dL Albumin/Globulin Ratio 0.8 L (0.9-1.6) Amylase 39 (25-115) U/L Lipase 82 (73-393) U/L Urine Color Urine Appearance Urine pH (5.0-8.0) Ur Specific [place] (1.001-1.035) Urine Protein (NEGATIVE) mg/dL Urine Glucose (UA) (NEGATIVE) mg/dL Urine Ketones (NEGATIVE) mg/dL Urine Occult Blood (NEGATIVE) Urine Nitrite (NEGATIVE) Urine Bilirubin (NEGATIVE) Urine Urobilinogen (<2.0) EU/dL Ur Leukocyte Esterase (NEGATIVE) Urine RBC (0-2/HPF) Urine WBC (0-5/HPF) Ur Epithelial Cells (NONE-FEW) Urine Bacteria (NEGATIVE) Med Orders - Current: Current Medications Docusate Sodium (Colace) 100 mg PO DAILY PRN PRN Reason: Constipation Lactated Ringer's (Ringers, Lactated) 1,000 mls @ 125 mls/hr IV ASDIRECTED [facility] Last Admin: 02/06/19 04:53 Dose: 125 mls/hr Pantoprazole Sodium 40 mg/ (Sodium Chloride) 10 mls @ 300 mls/hr IV DAILY [facility] Last Admin: 02/06/19 09:16 Dose: 300 mls/hr Levofloxacin/Dextrose 750 mg/ (Premix) 150 mls @ 100 mls/hr IV Q24H [facility] Oxycodone/Acetaminophen (Percocet 325-5 Mg) 1 tab PO Q4H PRN PRN Reason: Pain Sodium Chloride (Saline Flush) 10 ml FLUSH ASDIRECTED PRN PRN Reason: Keep Vein Open Sodium Chloride (Saline Flush) 2.5 ml FLUSH ASDIRECTED PRN PRN Reason: Keep Vein Open Discontinued Medications Sodium Chloride (Normal Saline) 1,000 mls @ 999 mls/hr IV .Bolus ONE Stop: 02/05/19 10:25 Last Admin: 02/05/19 09:48 Dose: 999 mls/hr Levofloxacin/Dextrose 500 mg/ (Premix) 100 mls @ 100 mls/hr IV ONETIME ONE Stop: 02/05/19 12:09 Last Admin: 02/05/19 11:37 Dose: 100 mls/hr Levofloxacin/Dextrose 750 mg/ (Premix) 150 mls @ 100 mls/hr IV Q24H FREDIS Iopamidol (Isovue Multipack-370 (76%)) 100 ml IVPUSH ONETIME STA Stop: 02/05/19 12:30 Last Admin: 02/05/19 12:38 Dose: 100 ml Ketorolac Tromethamine (Toradol) 30 mg IVPUSH ONETIME ONE Stop: 02/05/19 09:35 Last Admin: 02/05/19 09:46 Dose: 30 mg Morphine Sulfate (Morphine) 4 mg IVPUSH ONETIME ONE Stop: 02/05/19 11:41 Last Admin: 02/05/19 11:45 Dose: 4 mg Morphine Sulfate (Morphine) 3 mg IVPUSH Q4H PRN PRN Reason: Pain Last Admin: 02/06/19 05:05 Dose: 3 mg Ondansetron HCl (Zofran) 4 mg IVPUSH ONETIME ONE Stop: 02/05/19 09:35 Last Admin: 02/05/19 09:46 Dose: 4 mg Pneumococcal Polyvalent Vaccine (Pneumovax 23) 0.5 ml IM .ONCE ONE Stop: 02/05/19 13:32 - Exam GI/Abdominal Exam: Normal Bowel Sounds (tender at epigastrium more than RUQ,no rebound), Soft - Problem List Review Problem List Initiated/Reviewed/Updated: Yes - My Orders Last 24 Hours: Active Orders 24 hr Category Date Time Status Patient Status [ADT] Stat ADT 02/05/19 11:57 Active Clear Liquid Diet [DIET] Diet 02/06/19 Lunch Ordered NPO Now [Nothing per Oral Now Diet] [DIET] Diet 02/05/19 Dinner Active Acetaminophen/oxyCODONE [Percocet 325-5 MG] Med 02/06/19 09:27 Ordered 1 tab PO Q4H PRN Docusate Sodium [Colace] Med 02/06/19 09:27 Ordered 100 mg PO DAILY PRN Lactated Ringers [Ringers, Lactated] 1,000 ml Med 02/05/19 12:30 Active IV ASDIRECTED Levofloxacin/Dextrose 5%-Water [Levaquin in D5W 750 MG/ Med 02/06/19 12:30 Active 150 ML] 750 mg Premix Bag 1 bag IV Q24H Pantoprazole [ProTONIX IV] 40 mg Med 02/06/19 09:00 Active Sodium Chloride 0.9% [Normal Saline] 10 ml IV DAILY Sodium Chloride 0.9% [Saline Flush] Med 02/05/19 09:25 Active 10 ml FLUSH ASDIRECTED PRN Sodium Chloride 0.9% [Saline Flush] Med 02/05/19 09:25 Active 2.5 ml FLUSH ASDIRECTED PRN Saline Lock Insert [OM.PC] Stat Oth 02/05/19 09:25 Ordered Medication Orders Docusate Sodium (Colace) 100 mg PO DAILY PRN PRN Reason: Constipation Lactated Ringer's (Ringers, Lactated) 1,000 mls @ 125 mls/hr IV ASDIRECTED [facility] Last Admin: 02/06/19 04:53 Dose: 125 mls/hr Infusion: 02/06/19 04:51 Dose: 125 mls/hr Admin: 02/05/19 20:51 Dose: 125 mls/hr Infusion: 02/05/19 20:51 Dose: 125 mls/hr Admin: 02/05/19 13:11 Dose: 125 mls/hr Pantoprazole Sodium 40 mg/ (Sodium Chloride) 10 mls @ 300 mls/hr IV DAILY [facility] Last Admin: 02/06/19 09:16 Dose: 300 mls/hr Levofloxacin/Dextrose 750 mg/ (Premix) 150 mls @ 100 mls/hr IV Q24H [facility] Oxycodone/Acetaminophen (Percocet 325-5 Mg) 1 tab PO Q4H PRN PRN Reason: Pain Sodium Chloride (Saline Flush) 10 ml FLUSH ASDIRECTED PRN PRN Reason: Keep Vein Open Sodium Chloride (Saline Flush) 2.5 ml FLUSH ASDIRECTED PRN PRN Reason: Keep Vein Open - Assessment Assessment (Free Text/Narrative):: wbc dropped from 17 to 10, pain improved, start po, dc home if jimbo, on prescription pain meds/PPI, levaquine - Plan Plan (Free Text/Narrative):: wbc dropped from 17 to 10, pain improved, start po, dc home if jimbo, on prescription pain meds/PPI, levaquine
[2019-02-06] MEDS: Acetaminophen/oxyCODONE 325-5 MG Tab PO PRN ×2 (09:50→14:55)
[2019-02-06] MEDS ORDERED: Levofloxacin/Dextrose 5%-Water 750 MG in Premix Bag 1 BAG IV SCH (12:30)
== END 2019-02-06 16:22 | disposition home or self-care (01) ==
LOC: MW.ED 09:08 → MW.MS 12:15
PROVIDERS: ADMIT Surgery; ATTEND Surgery
DX: K80.20 Calculus of gallbladder without cholecystitis without obstruction (principal); E66.9 Obesity, unspecified; Z68.36 Body mass index [BMI] 36.0-36.9, adult
CPT/HCPCS: 36415; 74177; 74177-26; 76705; 76705-26; 80053; 81001; 82150; 83690; 85025; 96361; 96365; 96366; 96375; 96376; 99285-25; A9270-GY; C9113; G0378; J1885; J1956; J2270; J2405; J7040; J7050; J7120; Q9967